=== PATIENT | male | born 1970 | race Caucasian/White ===

== ENCOUNTER 2022-10-09 14:05 | Emergency (ER) | payer MEDICAID ==
[~2022-10-09] VITALS: Ht 177.8 cm; Wt 82.0 kg
[2022-10-09] MEDS ORDERED: MORPHINE SULFATE 4 MG/ML CPJ (NOT FOR IM USE) IV ONE (15:30)
[2022-10-09] MEDS ORDERED: LIDOCAINE HCL/EPINEPHRINE 1%-EPI 1:100,000 50 ML VIAL INFIL ONE (15:30)
[2022-10-09] MEDS ORDERED: KETOROLAC 30MG/ML VIAL IV ONE (15:30)
[2022-10-09] MEDS ORDERED: PANTOPRAZOLE SODIUM 40 MG/VIAL IV ONE (15:30)
[2022-10-09] MEDS ORDERED: ONDANSETRON HCL 4MG/2ML INJ IV ONE (15:30)
[2022-10-09] MEDS ORDERED: ACETAMINOPHEN 325MG TABLET PO ONE (15:30)
[2022-10-09 15:41] LABS: BASOPHILS % 0.7 % (0.0-2.0); EOSINOPHILS % 0.6 % (0.0-5.0); HEMATOCRIT. 37.9 % (42.0-52.0); HEMOGLOBIN. 12.5 g/dL (14.0-18.0); LYMPHOCYTES % 11.1 % (20.0-50.0); MEAN CORPUSCULAR HEMOGLOBIN 29.8 pg (28.0-32.0); MEAN CORPUSCULAR VOLUME 90.7 fL (80.0-94.0); MEAN PLATELET VOLUME 6.9 fl (7.4-10.4); MONOCYTES % 9.6 % (2.0-8.0); PLATELET 234 x1000/uL (130-400); RED BLOOD CELL COUNT 4.17 mill/uL (4.7-6.1); RED CELL DISTRIBUTION WIDTH 13.1 % (11.6-14.6)
[2022-10-09 15:44] LABS: CHLORIDE 106 mEq/L (98-107)
[2022-10-09 15:45] LABS: INR 1.1; PROTHROMBIN TIME 11.3 sec (9.6-11.0)
[2022-10-09] MEDS ORDERED: LIDOCAINE HCL/EPINEPHRINE 1%-EPI 1:100,000 20 ML VIAL INFIL NR (16:00)
[2022-10-09] MEDS ORDERED: IOHEXOL-350 100 ML BOTTLE ONE (16:59)
[2022-10-09 19:01] LABS: HEMATOCRIT 35.2 % (42.0-52.0); HEMOGLOBIN 11.8 g/dL (14.0-18.0)
[2022-10-09] MEDS ORDERED: PANT40TA51 MT (19:28)
[2022-10-09] MEDS ORDERED: TOPUD PO (19:31)
[2022-10-09 19:53] VITALS: BP 106/59
== END 2022-10-09 19:57 | disposition home or self-care (01) ==
LOC: ER 14:17
DX: K92.0 Hematemesis (principal); D64.9 Anemia, unspecified; R55 Syncope and collapse; S01.01XA Laceration without foreign body of scalp, initial encounter; W18.39XA Other fall on same level, initial encounter; Y93.89 Activity, other specified; Y92.012 Bathroom of single-family (private) house as the place of occurrence of the external cause
CPT/HCPCS: 12002; 36415; 70450; 71045; 72125; 74174; 80053; 83880; 84484; 85014; 85018; 85025; 85610; 93005; 96374; 96375; 99291; C9113; J1885; J2270; J2405; J3490; Q9967